=== PATIENT | female | born 1990 | race Caucasian/White ===

== ENCOUNTER 2018-11-25 10:06 | Day surgery (SDC) | payer BC ==
[2018-11-23 14:21] LABS: BASOPHILS % (AUTO) 0.4 % (0-1); EOSINOPHILS # (AUTO) 0.2 X10'3 (0-0.9); LYMPHOCYTES # (AUTO) 1.4 X10'3 (1.1-4.8); LYMPHOCYTES % (AUTO) 18.1 % (21-51); MEAN CORPUSCULAR HEMOGLOBIN 30.1 PG (27.0-31.0); MEAN CORPUSCULAR HGB CONC 33.7 % (33.0-36.5); MEAN CORPUSCULAR VOLUME 89.2 FL (78-98); MEAN PLATELET VOLUME 7.5 FL (7.4-10.4); MONOCYTES # (AUTO) 0.4 X10'3 (0-0.9); MONOCYTES % (AUTO) 5.7 % (2-12); NEUTROPHILS # (AUTO) 5.8 X10'3 (1.8-7.7); NEUTROPHILS % (AUTO) 73.8 % (42-75); PRE OP HEMATOCRIT 37.6 % (35.0-45.0); PRE OP HEMOGLOBIN 12.7 g/dL (12.0-16.0); PRE OP PLATELET COUNT 364 X10'3 (140-440); RED BLOOD COUNT 4.21 X10'6 (4.20-5.60); RED CELL DISTRIBUTION WIDTH 13.8 % (11.5-14.5)
[2018-11-23 14:35] LABS: HCG SERUM QL NEGATIVE
[~2018-11-25] VITALS: Ht 152.4 cm; Wt 99.4 kg
[2018-11-25] VITALS (7 sets, daily range): BP systolic 105–133; BP diastolic 51–69
[~2018-11-25 10:06] MED LIST: BUPIVAcaine/PF 2.5mg/ml (0.25%) 10ml vial ONE; NO HOME MEDS; cefazolin/dext.iso 2gm/100 ML IV ONE; epiNEPHrine 1 mg/ml inj ONE; famotidine 20mg tablet PO ONE; fentaNYL/PF 50MCG/1 ML 2ML syringe IV PRN; hydrALAZINE 20mg/ml inj. IV PRN; labetalol 20mg/4ml (5mg/ml) syringe IV PRN; morphine 4 MG/ML inj SYRINge IV PRN; ondansetron/PF 4mg/2ml inj IV PRN; ringers solution, lacted 1,000 ML IV SCH
[2018-11-25] MEDS ORDERED: dexamethasone sod phosphate 10mg/ml inj ONE (11:11)
[2018-11-25] MEDS ORDERED: sevoflurane 250ml liquid IH ONE (11:11)
[2018-11-25] MEDS ORDERED: glycopyrrolate 0.2mg/ml inj ONE (11:11)
[2018-11-25] MEDS ORDERED: rocuronium 10mg/ml inj IV ONE (11:11)
[2018-11-25] MEDS ORDERED: neostigmine methylsulfate 1 MG/ML 10ml vial ONE (11:11)
[2018-11-25] MEDS ORDERED: fentaNYL/PF 50MCG/1 ML 2ML syringe ONE (11:18)
[2018-11-25] MEDS ORDERED: midazolam 2 mg/2 ml injection ONE (11:18)
[2018-11-25] MEDS ORDERED: propofol inj 20 ML IV ONE (11:28)
[2018-11-25] MEDS ORDERED: LIDOcaine 2% (20mg/ml) 5ml vial ONE (11:28)
[2018-11-25] MEDS ORDERED: ondansetron/PF 4mg/2ml inj ONE (11:29)
--- NOTE | 2018-11-25 12:08 | NUR ---
AMY IN PACU VIA GURNEY FROM OR WITH O2 ON AND DR Art IN ATTENDANCE. REPORT RECEIVED. SLEEPY. VS STABLE. NO C/O PAIN
--- NOTE | 2018-11-25 12:29 | NUR ---
CORRECTION 1224 ON VS RECORD IS ADMIT VS. AND THEY WERE DONE AT 1208
--- NOTE | 2018-11-25 13:28 | NUR ---
UP STEADY ON FEET. DRESSED WITH LITTLE ASSISTANCE. TO CAR VIA W/C ASSISTED BY VOLUNTEER
== END 2018-11-25 13:28 | disposition home or self-care (01) ==
LOC: PAS 10:06 → EDBD 13:45
PROVIDERS: ATTEND Obstetrics & Gynecology
DX: Z30.2 Encounter for sterilization (principal); E66.01 Morbid (severe) obesity due to excess calories; F17.210 Nicotine dependence, cigarettes, uncomplicated; Z72.89 Other problems related to lifestyle; Z68.41 Body mass index [BMI] 40.0-44.9, adult
CPT/HCPCS: 36415; 58670; 84703; 85025; A6258; A6402; J0171; J0690; J1100; J2001; J2250; J2405; J2704; J2710; J3010; J3490; J7120; A7000